=== PATIENT | male | born 2000 | race Native Hawaiian/Other Pacific Islander ===

== ENCOUNTER 2022-07-26 09:57 | Emergency (ER) | payer OTHER ==
[~2022-07-26] VITALS: Ht 182.9 cm; Wt 142.9 kg
[2022-07-26 10:00] VITALS: TEMP 97.8
[2022-07-26 10:53] VITALS: BP 128/70
== END 2022-07-26 10:55 | disposition home or self-care (01) ==
LOC: ED 09:57
PROC: 0HQFXZZ Repair Right Hand Skin, External Approach (ICD-10-PCS; principal; 2022-07-26)
DX: S61.411A Laceration without foreign body of right hand, initial encounter (principal); W29.8XXA Contact with other powered hand tools and household machinery, initial encounter; Y93.89 Activity, other specified; Y92.89 Other specified places as the place of occurrence of the external cause; Z23 Encounter for immunization
CPT/HCPCS: 90471; 90715; 99283

== ENCOUNTER 2022-09-05 12:32 | Outpatient (CLI) | payer OTHER | END 2022-09-05 19:02 | disposition home or self-care (01) | LOC: MRI 12:32 | PROVIDERS: ATTEND Nurse Practitioner Primary Care | DX: M25.562 Pain in left knee (principal) ==